=== PATIENT | female | born 1995 | race African-American/Black ===

== ENCOUNTER 2017-03-27 20:07 | Emergency (ER) | payer MEDICAID ==
[~2017-03-27 20:07] MED LIST: BIRTH CONTROL
== END 2017-03-27 22:45 | disposition left against medical advice (07) ==
LOC: ER 22:43
DX: R11.10 Vomiting, unspecified (principal); Z53.21 Procedure and treatment not carried out due to patient leaving prior to being seen by health care provider

== ENCOUNTER 2017-11-25 15:26 | Emergency (ER) | payer MEDICAID ==
[~2017-11-25] VITALS: Ht 160 cm; Wt 62.0 kg
[2017-11-25] MEDS ORDERED: IBUPROFEN 600MG TABLET PO ONE (16:30)
[2017-11-25 18:34] VITALS: BP 110/39
== END 2017-11-25 18:37 | disposition home or self-care (01) ==
LOC: ER 16:16
DX: M25.511 Pain in right shoulder (principal); R07.89 Other chest pain; V49.9XXA Car occupant (driver) (passenger) injured in unspecified traffic accident, initial encounter; Y93.9 Activity, unspecified; Y92.410 Unspecified street and highway as the place of occurrence of the external cause
CPT/HCPCS: 71045; 73030; 81025; 99284

== ENCOUNTER 2018-03-06 22:08 | Emergency (ER) | payer SELFPAY ==
[~2018-03-06] VITALS: Ht 152.4 cm; Wt 51.0 kg
[2018-03-06 23:55] VITALS: BP 111/56
== END 2018-03-07 00:07 | disposition home or self-care (01) ==
LOC: ER 22:08
DX: N75.0 Cyst of Bartholin's gland (principal); F12.10 Cannabis abuse, uncomplicated; F17.200 Nicotine dependence, unspecified, uncomplicated
CPT/HCPCS: 99283

== ENCOUNTER 2018-05-02 19:03 | Emergency (ER) | payer SELFPAY ==
[~2018-05-02] VITALS: Ht 152.4 cm; Wt 60.0 kg
[2018-05-02] MEDS ORDERED: SODIUM CHLORIDE 0.9% 1,000 ML IV ONE ×2 (19:49→22:34)
[2018-05-02] MEDS ORDERED: ONDANSETRON HCL 4MG/2ML INJ IV STA ×2 (19:49→22:34)
[2018-05-02] MEDS ORDERED: MORPHINE SULFATE 4 MG/ML CPJ (NOT FOR IM USE) IV STA (19:49)
[2018-05-02] MEDS ORDERED: MAGNESIUM/ALUMINUM HYDROXIDE/SIMETHICONE 30ML UDC PO STA (19:49)
[2018-05-02 20:17] LABS: BASOPHILS % 0.2 % (0.0-2.0); HEMATOCRIT. 39.6 % (36.0-48.0); HEMOGLOBIN. 13.2 g/dL (12.0-16.0); LYMPHOCYTES % 8.4 % (20.0-50.0); MEAN CORPUSCULAR HEMOGLOBIN 30.6 pg (28.0-32.0); MEAN CORPUSCULAR VOLUME 91.6 fL (81.0-99.0); MEAN PLATELET VOLUME 9.2 fl (7.4-10.4); MONOCYTES % 6.4 % (2.0-8.0); PLATELET 234 x1000/uL (130-400); RED BLOOD CELL COUNT 4.33 mill/uL (4.2-5.4); RED CELL DISTRIBUTION WIDTH 15.2 % (11.6-14.6)
[2018-05-02 20:26] LABS: CHLORIDE 104 mEq/L (98-107)
[2018-05-02 21:09] LABS: CLARITY URINE TURBID (CLEAR); COLOR URINE YELLOW (YELLOW); KETONES URINE 3+ (NEGATIVE); LEUKOCYTE ESTERASE URINE 3+ (NEGATIVE); NITRITE URINE POSITIVE (NEGATIVE); OCCULT BLOOD URINE 2+ (NEGATIVE); PH URINE 8.5 (4.5-8.0); PROTEIN URINE 2+ (NEGATIVE); SPECIFIC GRAVITY URINE 1.014 (1.005-1.030)
[2018-05-02] MEDS ORDERED: CEFTRIAXONE 1 G PREMIX 50 ML IV NR (21:30)
[2018-05-02] MEDS ORDERED: HYDROCODONE/ACETAMINOPHEN 5/325MG TABLET PO ONE (22:30)
[2018-05-02] MEDS ORDERED: IOHEXOL-300 100 ML BOTTLE ONE (23:42)
[2018-05-03 00:04] VITALS: BP 123/52
== END 2018-05-03 00:05 | disposition home or self-care (01) ==
LOC: ER 19:03
DX: N39.0 Urinary tract infection, site not specified (principal); N10 Acute pyelonephritis; N28.86 Ureteritis cystica
CPT/HCPCS: 36415; 74177; 80053; 81003; 81025; 83605; 83690; 85025; 87077; 87086; 87186; 96361; 96365; 96375; 96376; 99285; J0696; J2270; J2405; J7030; Q9967; Z7610

== ENCOUNTER 2020-01-29 11:59 | Emergency (ER) | payer MEDICAID ==
[~2020-01-29] VITALS: Ht 165.1 cm; Wt 59.0 kg
[2020-01-29] MEDS ORDERED: PREN-52 PO (12:08)
[2020-01-29] MEDS ORDERED: SODIUM CHLORIDE 0.9% 1,000 ML IV ONE (12:56)
[2020-01-29] MEDS ORDERED: ONDANSETRON HCL 4MG/2ML INJ IV STA (12:56)
[2020-01-29] MEDS ORDERED: FAMOTIDINE 20MG/2ML VIAL IV STA (12:56)
[2020-01-29 13:00] LABS: BASOPHILS % 0.4 % (0.0-2.0); EOSINOPHILS % 0.1 % (0.0-5.0); HEMATOCRIT. 38.3 % (36.0-48.0); HEMOGLOBIN. 12.9 g/dL (12.0-16.0); LYMPHOCYTES % 14.6 % (20.0-50.0); MEAN CORPUSCULAR HEMOGLOBIN 30.8 pg (28.0-32.0); MEAN CORPUSCULAR VOLUME 91.3 fL (81.0-99.0); MEAN PLATELET VOLUME 8.8 fl (7.4-10.4); MONOCYTES % 5.2 % (2.0-8.0); NEUTROPHILS % 79.7 % (40.0-76.0); PLATELET 272 x1000/uL (130-400); RED BLOOD CELL COUNT 4.19 mill/uL (4.2-5.4); RED CELL DISTRIBUTION WIDTH 15.3 % (11.6-14.6)
[2020-01-29 13:01] LABS: CLARITY URINE TURBID (CLEAR); COLOR URINE DARK YELLOW (YELLOW); KETONES URINE 4+ (NEGATIVE); LEUKOCYTE ESTERASE URINE 1+ (NEGATIVE); NITRITE URINE NEGATIVE (NEGATIVE); OCCULT BLOOD URINE NEGATIVE (NEGATIVE); PH URINE 8.5 (4.5-8.0); PROTEIN URINE 1+ (NEGATIVE); SPECIFIC GRAVITY URINE 1.023 (1.005-1.030)
[2020-01-29 13:05] LABS: CHLORIDE 104 mEq/L (98-107)
[2020-01-29 13:16] LABS: *AMPHETAMINES SCREEN URINE NEGATIVE (NEGATIVE); *BARBITURATES SCREEN URINE NEGATIVE (NEGATIVE); *BENZODIAZEPINES SCREEN URINE NEGATIVE (NEGATIVE); *COCAINE SCREEN URINE NEGATIVE (NEGATIVE); METHADONE URINE SCREEN NEGATIVE (NEGATIVE); OPIATES URINE SCREEN NEGATIVE (NEGATIVE)
[2020-01-29 13:17] LABS: PHENCYCLIDINE URINE SCREEN NEGATIVE (NEGATIVE)
[2020-01-29 13:22] LABS: CANNABINOID URINE SCREEN PRESUMTIVE POSITIVE (NEGATIVE)
[2020-01-29 13:40] LABS: B-HCG QUANTITATIVE 147328 mIU/mL (<3)
[2020-01-29] MEDS ORDERED: POTASSIUM CHLORIDE 20MEQ TABLET SR PO ONE (15:30)
[2020-01-29 16:08] VITALS: BP 121/67
== END 2020-01-29 16:35 | disposition home or self-care (01) ==
LOC: ER 11:59
DX: O21.8 Other vomiting complicating pregnancy (principal); O26.891 Other specified pregnancy related conditions, first trimester; R10.13 Epigastric pain; F12.10 Cannabis abuse, uncomplicated; Z3A.09 9 weeks gestation of pregnancy
CPT/HCPCS: 36415; 76705; 76801; 80053; 80305; 81003; 81025; 83690; 84702; 85025; 85610; 86850; 86900; 86901; 96361; 96374; 96375; 99285; J2405; J3490; J7030

== ENCOUNTER 2020-02-04 14:01 | Emergency (ER) | payer MEDICAID ==
[~2020-02-04] VITALS: Ht 165.1 cm; Wt 61.0 kg
[~2020-02-04 14:01] MED LIST changes: -BIRTH CONTROL; +PREN-52 PO
[2020-02-04 14:09] VITALS: BP 136/75
[2020-02-04] MEDS ORDERED: [UNRECOGNIZED DRUG - OTHER] IM (14:15)
[2020-02-04] MEDS ORDERED: FAMO20TA8 PO (14:15)
[2020-02-04] MEDS ORDERED: ONDA4TAB5 PO (14:15)
== END 2020-02-04 16:58 | disposition left against medical advice (07) ==
LOC: ER 14:20
DX: Z53.21 Procedure and treatment not carried out due to patient leaving prior to being seen by health care provider (principal)

== ENCOUNTER 2021-12-10 12:30 | Emergency (ER) | payer OTHER, MEDICAID ==
[~2021-12-10] VITALS: Ht 152.4 cm; Wt 55.0 kg
[~2021-12-10 12:30] MED LIST changes: +FAMO20TA8 PO; +IBUP-2030 PO
[2021-12-10 12:36] VITALS: BP 131/56
[2021-12-10] MEDS ORDERED: ONDANSETRON HCL 4MG/2ML INJ IV ONE (13:45)
[2021-12-10] MEDS ORDERED: PYRIDOXINE HCL 50MG TABLET PO ONE (14:00)
[2021-12-10 14:06] LABS: BASOPHILS % 0.2 % (0.0-2.0); HEMATOCRIT. 35.6 % (36.0-48.0); HEMOGLOBIN. 11.7 g/dL (12.0-16.0); LYMPHOCYTES % 18.1 % (20.0-50.0); MEAN CORPUSCULAR HEMOGLOBIN 29.4 pg (28.0-32.0); MEAN CORPUSCULAR VOLUME 89.2 fL (81.0-99.0); MEAN PLATELET VOLUME 8.5 fl (7.4-10.4); MONOCYTES % 5.2 % (2.0-8.0); NEUTROPHILS % 75.5 % (40.0-76.0); PLATELET 277 x1000/uL (130-400); RED BLOOD CELL COUNT 3.99 mill/uL (4.2-5.4); RED CELL DISTRIBUTION WIDTH 19.6 % (11.6-14.6)
[2021-12-10 14:16] LABS: CHLORIDE 104 mEq/L (98-107)
[2021-12-10 14:28] LABS: CLARITY URINE TURBID (CLEAR); COLOR URINE YELLOW (YELLOW); KETONES URINE TRACE (NEGATIVE); LEUKOCYTE ESTERASE URINE 1+ (NEGATIVE); NITRITE URINE NEGATIVE (NEGATIVE); OCCULT BLOOD URINE NEGATIVE (NEGATIVE); PH URINE 7.5 (4.5-8.0); PROTEIN URINE NEGATIVE (NEGATIVE); SPECIFIC GRAVITY URINE 1.015 (1.005-1.030); UROBILINOGEN URINE 0.2 E.U./dL (0.2-1.0)
[2021-12-10 14:41] LABS: B-HCG QUANTITATIVE 114079 mIU/mL (<3)
[2021-12-10] MEDS ORDERED: CEFTRIAXONE 1 G PREMIX 50 ML IV ONE (15:30)
[2021-12-10] MEDS ORDERED: SODIUM CHLORIDE 0.9% 1,000 ML IV ONE (15:30)
[2021-12-10] MEDS ORDERED: POTASSIUM CHLORIDE 20MEQ/PACKET PO ONE (15:30)
[2021-12-10] MEDS ORDERED: CEFP200T13 MT (17:23)
== END 2021-12-10 18:26 | disposition home or self-care (01) ==
LOC: ER 12:30
DX: O23.31 Infections of other parts of urinary tract in pregnancy, first trimester (principal); Z3A.09 9 weeks gestation of pregnancy; O21.8 Other vomiting complicating pregnancy; F12.10 Cannabis abuse, uncomplicated
CPT/HCPCS: 36415; 76801; 80053; 81003; 81025; 83690; 84702; 85025; 96365; 96366; 96375; 99284; J0696; J2405; J7030

== ENCOUNTER 2022-03-27 11:43 | Emergency (ER) | payer MEDICAID, OTHER ==
[~2022-03-27] VITALS: Ht 152.4 cm; Wt 62.0 kg
[~2022-03-27 11:43] MED LIST changes: +CEFP200T13 MT
[2022-03-27 11:48] VITALS: BP 125/58
[2022-03-27] MEDS ORDERED: ACETAMINOPHEN 325MG TABLET PO PRN (12:45)
[2022-03-27 12:59] LABS: BASOPHILS % 0.1 % (0.0-2.0); EOSINOPHILS % 1.2 % (0.0-5.0); HEMATOCRIT. 31.1 % (36.0-48.0); HEMOGLOBIN. 10.2 g/dL (12.0-16.0); LYMPHOCYTES % 18.7 % (20.0-50.0); MEAN CORPUSCULAR HEMOGLOBIN 32.2 pg (28.0-32.0); MEAN CORPUSCULAR VOLUME 97.8 fL (81.0-99.0); MEAN PLATELET VOLUME 9.1 fl (7.4-10.4); MONOCYTES % 5.1 % (2.0-8.0); NEUTROPHILS % 74.9 % (40.0-76.0); PLATELET 204 x1000/uL (130-400); RED BLOOD CELL COUNT 3.18 mill/uL (4.2-5.4); RED CELL DISTRIBUTION WIDTH 14.8 % (11.6-14.6)
[2022-03-27 13:07] LABS: CHLORIDE 107 mEq/L (98-107)
[2022-03-27 13:38] LABS: B-HCG QUANTITATIVE 8276 mIU/mL (<3)
[2022-03-27 16:13] LABS: CLARITY URINE CLEAR (CLEAR); COLOR URINE YELLOW (YELLOW); KETONES URINE 3+ (NEGATIVE); LEUKOCYTE ESTERASE URINE 3+ (NEGATIVE); NITRITE URINE NEGATIVE (NEGATIVE); OCCULT BLOOD URINE NEGATIVE (NEGATIVE); PROTEIN URINE NEGATIVE (NEGATIVE); SPECIFIC GRAVITY URINE 1.009 (1.005-1.030); UROBILINOGEN URINE 0.2 E.U./dL (0.2-1.0)
[2022-03-27] MEDS ORDERED: NITR-87 MT (16:57)
== END 2022-03-27 17:10 | disposition home or self-care (01) ==
LOC: ER 11:43
DX: O23.42 Unspecified infection of urinary tract in pregnancy, second trimester (principal); N39.0 Urinary tract infection, site not specified; Z3A.24 24 weeks gestation of pregnancy
CPT/HCPCS: 36415; 76805; 80053; 81003; 84702; 85025; 86850; 86900; 99284

== ENCOUNTER 2022-07-10 10:22 | Inpatient (IN) | payer OTHER, MEDICAID ==
[~2022-07-10] VITALS: Ht 152.4 cm; Wt 49.9 kg
[~2022-07-10 10:22] MED LIST changes: +NITR-87 MT
[2022-07-10] MEDS ORDERED: NALOXONE HCL 0.4 MG/ML 1ML VIAL IM PRN (12:00)
[2022-07-10] MEDS ORDERED: METHYLERGONOVINE MALEATE 0.2 MG/ML IM PRN (12:00)
[2022-07-10] MEDS ORDERED: BUTORPHANOL TARTRATE 2 MG/ML VIAL IV PRN (12:00)
[2022-07-10] MEDS ORDERED: LACTATED RINGERS 1,000 ML IV SCH (12:00)
[2022-07-10] MEDS ORDERED: OXYTOCIN 30 UNITS/500ML NS PMX 500 ML IV SCH ×2 (12:00→18:30)
[2022-07-10] MEDS ORDERED: LIDOCAINE HCL 1% 20ML VIAL (Pyxis) INJ INFIL NR (12:00)
[2022-07-10 12:46] LABS: BASOPHILS % 0.3 % (0.0-2.0); CLARITY URINE CLEAR (CLEAR); COLOR URINE YELLOW (YELLOW); EOSINOPHILS % 0.9 % (0.0-5.0); HEMATOCRIT. 29.9 % (36.0-48.0); HEMOGLOBIN. 10.1 g/dL (12.0-16.0); KETONES URINE NEGATIVE (NEGATIVE); LEUKOCYTE ESTERASE URINE NEGATIVE (NEGATIVE); LYMPHOCYTES % 29.4 % (20.0-50.0); MEAN CORPUSCULAR HEMOGLOBIN 33.4 pg (28.0-32.0); MEAN CORPUSCULAR VOLUME 99.1 fL (81.0-99.0); MEAN PLATELET VOLUME 10.2 fl (7.4-10.4); MONOCYTES % 5.5 % (2.0-8.0); NEUTROPHILS % 63.9 % (40.0-76.0); NITRITE URINE NEGATIVE (NEGATIVE); OCCULT BLOOD URINE NEGATIVE (NEGATIVE); PH URINE 8.5 (4.5-8.0); PLATELET 173 x1000/uL (130-400); PROTEIN URINE NEGATIVE (NEGATIVE); RED BLOOD CELL COUNT 3.01 mill/uL (4.2-5.4); RED CELL DISTRIBUTION WIDTH 14.7 % (11.6-14.6); SPECIFIC GRAVITY URINE 1.008 (1.005-1.030); UROBILINOGEN URINE 0.2 E.U./dL (0.2-1.0)
[2022-07-10] MEDS ORDERED: PENICILLIN G POTASSIUM 5 MMU in DEXT 5% WATER 100 ML IV SCH (13:00)
[2022-07-10 13:13] LABS: PARTIAL THROMBOPLASTIN TIME 28.5 sec (23.4-31.0); PROTHROMBIN TIME 10.3 sec (9.6-11.0)
[2022-07-10 13:34] LABS: *AMPHETAMINES SCREEN URINE NEGATIVE (NEGATIVE); *BARBITURATES SCREEN URINE NEGATIVE (NEGATIVE); *BENZODIAZEPINES SCREEN URINE NEGATIVE (NEGATIVE); *COCAINE SCREEN URINE NEGATIVE (NEGATIVE); METHADONE URINE SCREEN NEGATIVE (NEGATIVE); OPIATES URINE SCREEN NEGATIVE (NEGATIVE); PHENCYCLIDINE URINE SCREEN NEGATIVE (NEGATIVE)
[2022-07-10 13:44] LABS: CANNABINOID URINE SCREEN PRESUMTIVE POSITIVE (NEGATIVE)
[2022-07-10 14:14] LABS: HEPATITIS B SURFACE ANTIGEN NEGATIVE
[2022-07-10] MEDS ORDERED: ROPIVACAINE HCL/PF EPIDURAL 200 ML EPI ONE (14:30)
[2022-07-10] MEDS ORDERED: ROPIVACAINE HCL/PF EPIDURAL 200 ML EPI SCH (15:15)
[2022-07-10] MEDS ORDERED: PENICILLIN G POTASSIUM 2.5 MMU in DEXTROSE 5% WATER 50 ML IV SCH (17:00)
[2022-07-10] MEDS ORDERED: HEMORRHOIDAL SUPP PR PRN (18:30)
[2022-07-10] MEDS ORDERED: RHO(D) IMMUNE GLOBULIN 300 MCG/SYR IM PRN (18:30)
[2022-07-10] MEDS ORDERED: GLYCERIN/WITCH HAZEL LEAF MEDICATED PAD TOP PRN (18:30)
[2022-07-10] MEDS ORDERED: OXYCODONE HCL/ACETAMINOPHEN 5/325MG TABLET PO PRN (18:30)
[2022-07-10] MEDS ORDERED: IBUPROFEN 400MG TABLET PO PRN (18:30)
[2022-07-10] MEDS ORDERED: BISACODYL 10MG SUPP PR PRN (18:30)
[2022-07-10] MEDS ORDERED: LANOLIN OINT 7GM TUBE TOP PRN (18:30)
[2022-07-10] MEDS ORDERED: DIPHENHYDRAMINE 25MG CAPSULE PO PRN (18:30)
[2022-07-10] MEDS ORDERED: BENZOCAINE/LANOLIN/ALOE VERA SPRAY TOP PRN (18:30)
[2022-07-10 19:40] VITALS: BP 104/50
[2022-07-10 20:10] VITALS: BP 104/49
[2022-07-10 20:45] VITALS: BP 100/51
[2022-07-10] MEDS: SIMETHICONE 80MG TABLET CHEW PO SCH (21:18)
[2022-07-10] MEDS: DOCUSATE SODIUM 100MG CAPSULE PO SCH (21:18)
[2022-07-10] MEDS: MAGNESIUM/ALUMINUM HYDROXIDE/SIMETHICONE 30ML UDC PO SCH (21:19)
[2022-07-10] MEDS: IBUPROFEN 800MG TABLET PO PRN (21:19)
[2022-07-11 04:30] VITALS: BP 102/49
[2022-07-11] MEDS: MAGNESIUM/ALUMINUM HYDROXIDE/SIMETHICONE 30ML UDC PO SCH ×2 (07:30→23:01)
[2022-07-11 08:00] VITALS: BP 102/58
[2022-07-11] MEDS: SIMETHICONE 80MG TABLET CHEW PO SCH ×2 (08:00→23:01)
[2022-07-11] MEDS ORDERED: PRENATAL VIT/FE FUMARATE/FA TABLET PO SCH (09:00)
[2022-07-11] MEDS: FERROUS SULFATE 325MG TABLET PO SCH ×2 (10:04→14:41)
[2022-07-11 12:43] LABS: BASOPHILS % 0.1 % (0.0-2.0); EOSINOPHILS % 0.5 % (0.0-5.0); HEMOGLOBIN. 9.8 g/dL (12.0-16.0); LYMPHOCYTES % 24.6 % (20.0-50.0); MEAN CORPUSCULAR HEMOGLOBIN 32.8 pg (28.0-32.0); MEAN CORPUSCULAR VOLUME 97.1 fL (81.0-99.0); MEAN PLATELET VOLUME 10.4 fl (7.4-10.4); MONOCYTES % 4.9 % (2.0-8.0); NEUTROPHILS % 69.9 % (40.0-76.0); PLATELET 170 x1000/uL (130-400); RED BLOOD CELL COUNT 2.99 mill/uL (4.2-5.4); RED CELL DISTRIBUTION WIDTH 14.3 % (11.6-14.6)
[2022-07-11 16:00] VITALS: BP 102/69
[2022-07-11 20:00] VITALS: BP 106/52
[2022-07-11] MEDS: IBUPROFEN 800MG TABLET PO PRN (23:00)
[2022-07-11] MEDS: DOCUSATE SODIUM 100MG CAPSULE PO SCH (23:01)
[2022-07-12 04:00] VITALS: BP 93/56
[2022-07-12] MEDS: IBUPROFEN 800MG TABLET PO PRN (05:01)
[2022-07-12 08:00] VITALS: BP 107/56
[2022-07-19 09:11] LABS: CANNABINOID CONFIRMATION URINE Positive (.)
== END 2022-07-12 13:10 | disposition home or self-care (01) | DRG 807 ==
LOC: 8EST 10:22 → 8 EST LDRP 10:54 → OBSVTOIN 11:38 → 8EST 19:14
PROVIDERS: ADMIT Obstetrics & Gynecology; ATTEND Obstetrics & Gynecology
PROC: 10E0XZZ Delivery of Products of Conception, External Approach (ICD-10-PCS; principal; 2022-07-10)
PROC: 3E0R3BZ Introduction of Anesthetic Agent into Spinal Canal, Percutaneous Approach (ICD-10-PCS; 2022-07-10)
PROC: 00HU33Z Insertion of Infusion Device into Spinal Canal, Percutaneous Approach (ICD-10-PCS; 2022-07-10)
DX: O48.0 Post-term pregnancy (principal); Z37.0 Single live birth; Z3A.40 40 weeks gestation of pregnancy; Z20.822 Contact with and (suspected) exposure to COVID-19; F43.21 Adjustment disorder with depressed mood; O99.345 Other mental disorders complicating the puerperium
CPT/HCPCS: 36415; 76805; 76818; 80305; 80349; 81003; 85025; 86592; 86703; 86762; 86850; 86900; 87340; 87426; 99281; G0378; J2540; J2795; J7060; J7120; J2590

== ENCOUNTER 2022-11-22 09:33 | Emergency (ER) | payer OTHER, MEDICAID ==
[~2022-11-22] VITALS: Ht 152.4 cm; Wt 56.8 kg
[~2022-11-22 09:33] MED LIST changes: -FAMO20TA8 PO; -PREN-52 PO
[2022-11-22 09:39] VITALS: BP 126/84
[2022-11-22 10:26] LABS: CLARITY URINE CLOUDY (CLEAR); COLOR URINE YELLOW (YELLOW); KETONES URINE TRACE (NEGATIVE); LEUKOCYTE ESTERASE URINE 1+ (NEGATIVE); NITRITE URINE NEGATIVE (NEGATIVE); OCCULT BLOOD URINE NEGATIVE (NEGATIVE); PROTEIN URINE TRACE (NEGATIVE); SPECIFIC GRAVITY URINE 1.016 (1.005-1.030); UROBILINOGEN URINE 0.2 E.U./dL (0.2-1.0)
[2022-11-22 11:11] LABS: BASOPHILS % 0.2 % (0.0-2.0); EOSINOPHILS % 0.8 % (0.0-5.0); HEMATOCRIT. 32.6 % (36.0-48.0); HEMOGLOBIN. 10.7 g/dL (12.0-16.0); LYMPHOCYTES % 29.5 % (20.0-50.0); MEAN CORPUSCULAR HEMOGLOBIN 28.1 pg (28.0-32.0); MEAN CORPUSCULAR VOLUME 85.7 fL (81.0-99.0); MEAN PLATELET VOLUME 7.9 fl (7.4-10.4); NEUTROPHILS % 62.5 % (40.0-76.0); PLATELET 331 x1000/uL (130-400); RED CELL DISTRIBUTION WIDTH 17.2 % (11.6-14.6)
[2022-11-22 11:24] LABS: CHLORIDE 107 mEq/L (98-107)
[2022-11-22 11:36] LABS: HCG SCREEN POSITIVE
[2022-11-22] MEDS ORDERED: ONDA4TAB50 MT (14:08)
[2022-11-22] MEDS ORDERED: ONDANSETRON 4MG ODT PO ONE (14:15)
[2022-11-27] MEDS ORDERED: CEPH500C2 MT (09:40)
== END 2022-11-22 14:15 | disposition home or self-care (01) ==
LOC: ER 09:53
DX: O26.891 Other specified pregnancy related conditions, first trimester (principal); R10.9 Unspecified abdominal pain; Z3A.01 Less than 8 weeks gestation of pregnancy
CPT/HCPCS: 36415; 76801; 80053; 81003; 81025; 84702; 84703; 85025; 86850; 86900; 86920; 99284